=== PATIENT | male | born 1975 | race Two or more races ===

== ENCOUNTER → 2020-08-06 | Day surgery (SDC) | payer MEDICAID, OTHER ==
[~2020-08-06] VITALS: Ht 182.9 cm; Wt 95.0 kg
[~2020-08-06] MED LIST: BUPIVACAINE/PF 0.5% ONE; BUPIVACAINE/PF-EPI 0.5% 1:200K INFIL ONE; CEFAZOLIN 1,000 MG ONE; CEFTRIAXONE PMX 1GM/50ML 50 ML IV ONE; CEFTRIAXONE PMX 1GM/50ML 50 ML ONE; DEXAMETHASONE 4 MG/ML, 1ML ONE; DIPHENHYDRAMINE 50 MG/ML, 1ML IVPush PRN; EPINEPHRINE 1 MG/ML, 1ML ONE; FENTANYL PF 100 MCG/2ML IV PRN; FENTANYL PF 100 MCG/2ML ONE; FENTANYL PF 250 MCG/5ML ONE; GLYCOPYRROLATE 0.2MG/1ML, 5ML ONE; HALOPERIDOL 5 MG/ML IV PRN; HYDROmorphone 1 MG/ML, 1ML INJ IVPush PRN; HYDROmorphone 1 MG/ML, 1ML INJ ONE; KETOROLAC 30 MG/1 ML ONE; LABETALOL 5MG/ML, 20ML IV PRN; MEPERIDINE/PF 25MG/0.5ML IVPush PRN; MORPHINE SULFATE 4 MG/ML, 1ML ONE; NEOSTIGMINE 1 MG/ML, 10ML ONE; OMNIPAQUE 350 MG/ML, 100ML BOTTLE ONE; ONDANSETRON 2MG/ML, 2ML IVPush ONE; ONDANSETRON 2MG/ML, 2ML IVPush PRN; ONDANSETRON 2MG/ML, 2ML ONE; OXYC-302 PO; OXYcodone 5 MG/5 ML ORAL.SOL UDC ONE; OXYcodone 5 MG/5 ML ORAL.SOL UDC PO PRN; OXYcodone/APAP 5/325MG TABLET PO PRN; POLY17PO5 PO; PROMETHAZINE 25 MG/ML, 1ML IVPush PRN; PROPOFOL 10 MG/ML, 20ML ONE; ROCURONIUM 10MG/ML,5ML ONE; SODIUM CHLORIDE 0.9% 1,000 ML IV ONE; SODIUM CHLORIDE 0.9% 1,000ML IVBOLUS ONE; SODIUM CHLORIDE FLUSH 10ML SYR IVF ONE; SODIUM CHLORIDE FLUSH 3ML SYRINGE IVF SCH; SUCCINYLCHOLINE 20 MG/ML, 10ML ONE; hydrALAzine 20 MG/ML, 1ML IV PRN
--- NOTE | 2020-08-06 00:59 | NUR ---
TASK RN: 44Y M BIB EMS FROM HOME FOR ABD PAIN STARTING LAST NIGHT. PT STS WOKE UP WITH EPIGASTRIC PAIN AND COLD SWEATS. DENIES N/V/D REPORTS LAST BM WAS A FEW DAYS AGO. PT CONNECTED TO MONITORING VSS. REPORT TO RIN JAY
[2020-08-06 01:17] LABS: BASOPHILS # (AUTO) 0.02 x10^3/uL (0-0.1); BASOPHILS % (AUTO) 0 % (0-1); EOSINOPHILS # (AUTO) 0.03 x10^3/uL (0-0.4); EOSINOPHILS % (AUTO) 0 % (1-7); LYMPHOCYTES % (AUTO) 10 % (22-44); MD NO; MEAN CORPUSCULAR HEMOGLOBIN 29.9 pg (27.5-34.5); MEAN CORPUSCULAR HGB CONC 31.8 g/dL (33.2-36.2); MEAN PLATELET VOLUME 6.5 fL (7.4-10.4); MONOCYTES # (AUTO) 0.48 x10^3/uL (0.2-0.8); MONOCYTES % (AUTO) 3 % (2-9); NEUTROPHILS # (AUTO) 14.07 x10^3/uL (1.8-6.8); NEUTROPHILS % (AUTO) 86 % (42-75); PLATELET COUNT 310 x10^3/uL (130-400); RED BLOOD COUNT 5.93 x10^6/uL (4.38-5.82); RED CELL DISTRIBUTION WIDTH 14.3 % (9.4-14.8)
[2020-08-06] MEDS: MORPHINE SULFATE 4 MG/ML, 1ML IVPush PRN ×2 (01:31→02:44)
[2020-08-06 01:36] LABS: ALANINE AMINOTRANSFERASE 29 U/L (12-78); ALBUMIN 3.9 g/dL (3.4-5.0); ANION GAP 6 mmol/L (5-15); CALCIUM 9.4 mg/dL (8.5-10.1); CHLORIDE 108 mmol/L (98-107); CREATININE 0.98 mg/dL (0.7-1.3)
[2020-08-06 01:38] LABS: ALKALINE PHOSPHATASE 121 U/L (45-117); BILIRUBIN,TOTAL 0.4 mg/dL (0.2-1.0); TOTAL PROTEIN 8.3 g/dL (6.4-8.2)
--- NOTE | 2020-08-06 01:50 | NUR ---
LATE ENTRY D/T PT CARE: PT PROVIDED URINAL PER REQUEST. PT NAD, RESTING ON GURNEY, STILL REPORTS SOME ABDOMINAL PAIN. WCTM. WAITING FOR CT RESULTS.
[2020-08-06 02:03] LABS: TROPONIN I < 0.015 ng/mL (0.000-0.045)
--- NOTE | 2020-08-06 02:48 | NUR ---
PT RESTING ON , MEDICATED PER JAN, PT TO GO TO SURGERY. RUBIN, RADHA.
--- NOTE | 2020-08-06 03:40 | NUR ---
PT MIRNA CHAVEZ TO BE UPDATED ON MEDICAL INFORMATION. PT RESTING ON GURNEY, PAIN ELEVATED AGAIN, COVID SWAB WALKED TO LAB. NAD. VSS. WCTM. REPORT CALLED TO FLOOR, PT TO BE TRANSFERRED TO FLOOR AFTER RESULTS.
[2020-08-06 04:47] VITALS: BP 122/84
[2020-08-06 04:59] VITALS: BP 122/84
[2020-08-06 07:30] VITALS: BP 128/74
[2020-08-06] MEDS: ZOFRAN MC SCH ×2 (10:10→16:08)
[2020-08-06 13:16] VITALS: BP 114/67
[2020-08-06 20:00] VITALS: BP 120/62
== END | disposition home or self-care (01) ==
LOC: ED 02:50 → EDIP 03:08 → SDC 03:08 → UNDOADMIN 03:08 → EDBD 03:08 → 4NE 04:35 → EDIP 04:35 → EDSTATUS 05:51 → UNDODISIN 20:00
PROVIDERS: ATTEND Student in an Organized Health Care Education/Training Program
DX: K35.80 Unspecified acute appendicitis (principal); Z20.828 Contact with and (suspected) exposure to other viral communicable diseases; F19.10 Other psychoactive substance abuse, uncomplicated
CPT/HCPCS: 36415; 44970; 74177; 80053; 84484; 85025; 87635; 88304; 93005; 96361; 96365; 96375; 99285; J0171; J0330; J0696; J1100; J1170; J1885; J2270; J2405; J2704; J2710; J3010; J7030; Q9967; G0378; J0690

== ENCOUNTER 2020-10-10 16:26 | Emergency (ER) | payer MEDICAID ==
[~2020-10-10] VITALS: Ht 180.3 cm; Wt 88.0 kg
[~2020-10-10 16:26] MED LIST changes: -BUPIVACAINE/PF 0.5% ONE; -BUPIVACAINE/PF-EPI 0.5% 1:200K INFIL ONE; -CEFAZOLIN 1,000 MG ONE; -CEFTRIAXONE PMX 1GM/50ML 50 ML IV ONE; -CEFTRIAXONE PMX 1GM/50ML 50 ML ONE; -DEXAMETHASONE 4 MG/ML, 1ML ONE; -DIPHENHYDRAMINE 50 MG/ML, 1ML IVPush PRN; -EPINEPHRINE 1 MG/ML, 1ML ONE; -FENTANYL PF 100 MCG/2ML IV PRN; -FENTANYL PF 100 MCG/2ML ONE; -FENTANYL PF 250 MCG/5ML ONE; -GLYCOPYRROLATE 0.2MG/1ML, 5ML ONE; -HALOPERIDOL 5 MG/ML IV PRN; -HYDROmorphone 1 MG/ML, 1ML INJ IVPush PRN; -HYDROmorphone 1 MG/ML, 1ML INJ ONE; -KETOROLAC 30 MG/1 ML ONE; -LABETALOL 5MG/ML, 20ML IV PRN; -MEPERIDINE/PF 25MG/0.5ML IVPush PRN; -MORPHINE SULFATE 4 MG/ML, 1ML ONE; -NEOSTIGMINE 1 MG/ML, 10ML ONE; -OMNIPAQUE 350 MG/ML, 100ML BOTTLE ONE; -ONDANSETRON 2MG/ML, 2ML IVPush ONE; -ONDANSETRON 2MG/ML, 2ML IVPush PRN; -ONDANSETRON 2MG/ML, 2ML ONE; -OXYcodone 5 MG/5 ML ORAL.SOL UDC ONE; -OXYcodone 5 MG/5 ML ORAL.SOL UDC PO PRN; -OXYcodone/APAP 5/325MG TABLET PO PRN; -PROMETHAZINE 25 MG/ML, 1ML IVPush PRN; -PROPOFOL 10 MG/ML, 20ML ONE; -ROCURONIUM 10MG/ML,5ML ONE; -SODIUM CHLORIDE 0.9% 1,000 ML IV ONE; -SODIUM CHLORIDE 0.9% 1,000ML IVBOLUS ONE; -SODIUM CHLORIDE FLUSH 10ML SYR IVF ONE; -SODIUM CHLORIDE FLUSH 3ML SYRINGE IVF SCH; -SUCCINYLCHOLINE 20 MG/ML, 10ML ONE; -hydrALAzine 20 MG/ML, 1ML IV PRN
--- NOTE | 2020-10-10 17:45 | NUR ---
Took report from Gabriela JAY assume care at this time.
[2020-10-10 17:51] LABS: MICROSCOPIC AUTO
[2020-10-10] MEDS ORDERED: BICILLIN-LA 2,400,000 UNITS/4 ML IM ONE (18:30)
[2020-10-10 18:40] VITALS: BP 124/74
== END 2020-10-10 18:42 | disposition home or self-care (01) ==
LOC: ED 18:00
DX: A53.9 Syphilis, unspecified (principal); F17.210 Nicotine dependence, cigarettes, uncomplicated
CPT/HCPCS: 36415; 81001; 86592; 87491; 87591; 96372; 99283; 99406; J0561

== ENCOUNTER 2020-10-29 01:07 | Emergency (ER) | payer MEDICAID ==
[~2020-10-29] VITALS: Ht 180.3 cm; Wt 80.0 kg
--- NOTE | 2020-10-29 01:21 | NUR ---
pt ambulatory to room, no acute distress at this time. placed on cr monitor. sitting up and on his phone
[2020-10-29] MEDS ORDERED: DEXAMETHASONE 4 MG TABLET ONE (01:46)
--- NOTE | 2020-10-29 01:49 | NUR ---
portable cxry done, pt tolerated well. decadron po given, per MD order. pt a&ox4, calm and cooperative. no acute distress at this time.
[2020-10-29] MEDS ORDERED: DEXAMETHASONE 4 MG TABLET PO ONE (02:00)
[2020-10-29 02:23] VITALS: BP 157/90
--- NOTE | 2020-10-29 02:44 | NUR ---
d/c and f/u instructions given to pt, and he v/u. ambulatory, and in no acute distress. no resp distress at this time.
== END 2020-10-29 02:46 | disposition home or self-care (01) ==
LOC: ED 01:59
DX: R05 Cough (principal); R07.89 Other chest pain; R06.02 Shortness of breath; Z20.828 Contact with and (suspected) exposure to other viral communicable diseases; F17.210 Nicotine dependence, cigarettes, uncomplicated
CPT/HCPCS: 71045; 87635; 99406

== ENCOUNTER 2021-05-21 03:27 | Emergency (ER) | payer MEDICAID ==
[~2021-05-21] VITALS: Ht 180.3 cm; Wt 91.5 kg
[~2021-05-21 03:27] MED LIST changes: -OXYC-302 PO; +OXYC1TAB14 PO
[2021-05-21 03:34] VITALS: BP 104/69
--- NOTE | 2021-05-21 04:37 | NUR ---
patient left and signed AMA.
== END 2021-05-21 04:39 | disposition left against medical advice (07) ==
LOC: ED 04:33
DX: Z53.21 Procedure and treatment not carried out due to patient leaving prior to being seen by health care provider (principal)

== ENCOUNTER 2021-05-27 02:59 | Emergency (ER) | payer MEDICAID ==
[~2021-05-27] VITALS: Ht 180.3 cm; Wt 90.0 kg
--- NOTE | 2021-05-27 04:50 | NUR ---
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
[2021-05-27 06:30] VITALS: BP 115/72
[2021-05-27] MEDS ORDERED: AZITHROMYCIN 500 MG TABLET PO ONE (06:30)
[2021-05-27] MEDS ORDERED: CEFTRIAXONE 1,000 MG IM ONE (06:30)
[2021-05-27] MEDS ORDERED: CEFTRIAXONE 1,000 MG ONE (06:32)
[2021-05-27] MEDS ORDERED: AZITHROMYCIN 250 MG TABLET ONE (06:32)
--- NOTE | 2021-05-27 07:00 | NUR ---
BEDSIDE REPORT FROM MISTY GUARDADO FOR TRANSFER OF PATIENT CARE.
--- NOTE | 2021-05-27 07:01 | NUR ---
REPORT GIVEN TO MACHELLE JAY
--- NOTE | 2021-05-27 07:33 | NUR ---
Patient given discharge instructions and they have confirmed that they understand the instructions. Patient ambulatory with steady gait. NAD, all questions answered appropriately, denies additional needs at this time. No personal belongings left in room after discharge.
[2021-05-27 09:22] LABS: MICROSCOPIC INDICATED
== END 2021-05-27 07:34 | disposition home or self-care (01) ==
LOC: ED 05:43
DX: A64 Unspecified sexually transmitted disease (principal); F17.200 Nicotine dependence, unspecified, uncomplicated
CPT/HCPCS: 36415; 81001; 86592; 86803; 87077; 87086; 87491; 87591; 87806; 99283; J0696; G0475

== ENCOUNTER 2021-07-16 07:36 | Emergency (ER) | payer MEDICAID ==
[~2021-07-16] VITALS: Ht 182.9 cm; Wt 87.8 kg
[~2021-07-16 07:36] MED LIST changes: +OXYC1TAB12 PO; -OXYC1TAB14 PO
[2021-07-16 09:06] LABS: BASOPHILS % (AUTO) 0 % (0-1); EOSINOPHILS % (AUTO) 1 % (1-7); LYMPHOCYTES % (AUTO) 25 % (22-44); MEAN CORPUSCULAR HEMOGLOBIN 31.8 pg (27.5-34.5); MEAN CORPUSCULAR HGB CONC 34.3 g/dL (33.2-36.2); MEAN PLATELET VOLUME 6.5 fL (7.4-10.4); MONOCYTES % (AUTO) 10 % (2-9); NEUTROPHILS % (AUTO) 64 % (42-75); PLATELET COUNT 286 x10^3/uL (130-400); RED BLOOD COUNT 5.39 x10^6/uL (4.38-5.82); RED CELL DISTRIBUTION WIDTH 13.8 % (9.4-14.8)
[2021-07-16 09:08] LABS: ALANINE AMINOTRANSFERASE 33 U/L (12-78); ALBUMIN 3.4 g/dL (3.4-5.0); ANION GAP 3 mmol/L (5-15); CALCIUM 8.3 mg/dL (8.5-10.1); CHLORIDE 106 mmol/L (98-107)
[2021-07-16 09:16] LABS: ALKALINE PHOSPHATASE 102 U/L (45-117); BILIRUBIN,TOTAL 0.4 mg/dL (0.2-1.0); CREATININE 1.12 mg/dL (0.7-1.3); TOTAL PROTEIN 7.2 g/dL (6.4-8.2)
[2021-07-16] MEDS ORDERED: CEFTRIAXONE 1,000 MG ONE (10:23)
[2021-07-16] MEDS ORDERED: CEFTRIAXONE 1,000 MG IM ONE (10:30)
[2021-07-16] MEDS ORDERED: BICILLIN-LA 2,400,000 UNITS/4 ML IM ONE (10:30)
[2021-07-16] MEDS ORDERED: LIDOCAINE-MPF 1%, 5ML ONE (10:50)
[2021-07-16 11:17] VITALS: BP 130/74
[2021-07-16 11:25] LABS: MICROSCOPIC NOT IND
== END 2021-07-16 11:19 | disposition home or self-care (01) ==
LOC: ED 10:06
DX: K59.00 Constipation, unspecified (principal); R10.84 Generalized abdominal pain; A64 Unspecified sexually transmitted disease
CPT/HCPCS: 36415; 74021; 80053; 81003; 83690; 85025; 86592; 96372; 99284; J0561; J0696